=== PATIENT | female | born 1970 | race African-American/Black ===

== ENCOUNTER → 2016-04-29 | Outpatient (CLI) | payer OTHER ==
[~2016-04-29] VITALS: Ht 167.6 cm; Wt 90.7 kg
[2016-04-29 13:47] VITALS: BP 141/75
--- NOTE | 2016-04-29 15:46 | RAD ---
Indication mass left breast. Anticipated biopsy. Note is made of recent ultrasound examination of the left breast, 04/20/2016. A reasonably well-defined mass was seen in the upper outer left breast on that exam for which biopsy had been recommended. Targeted ultrasound of the left breast was performed and the known mass at the 2:00 position of the left breast, 9 cm from the nipple, was reproduced. Senior Software Quality [employer]st ultrasound images were saved. Image guided biopsy was discussed with the patient. The risks of infection and bleeding were outlined. The small possibility of pneumothorax was also discussed. The patient understood the risks associated with the procedure and wished to proceed. The skin was prepped and draped in the routine fashion. Local anesthesia was accomplished with 1% lidocaine. A 14-gauge coaxial biopsy system was utilized. Under ultrasound guidance 5 core samples were obtained. At the completion of the procedure a clip was placed at the biopsy site. Post biopsy clip deployment images of the left breast were obtained. S-shaped biopsy clip is noted in the upper outer aspect of the breast. The patient tolerated the procedure unremarkably. The biopsy site was dressed in routine fashion and the patient discharged with appropriate instructions. The biopsy samples were placed in formaldehyde and transferred to the pathology department. IMPRESSION: Successful ultrasound-guided biopsy mass upper outer left breast
== END | disposition home or self-care (01) ==
LOC: EDUNIT# 13:30 → US 15:32
PROVIDERS: ATTEND Nurse Practitioner
DX: N63 Unspecified lump in breast (principal)
CPT/HCPCS: 76942; G0206; 77065

== ENCOUNTER → 2019-05-03 | Outpatient (CLI) | payer OTHER ==
--- NOTE | 2019-05-03 11:49 | RAD ---
History: Routine screening. Technique: Bilateral digital mammographic routine views were obtained with 2-D and 3-D technique including use of CAD - computer aided detection. Comparison: 01/18/2017, 01/24/2018. Findings: Breast Tissue Density B :The breast tissue is composed of mixed fatty and fibroglandular tissue. There are no suspicious masses, microcalcifications or areas of architectural distortion. Impression: Negative mammogram. BI-RADS Category 1: Negative. Normal interval followup. A mammogram does not have 100% sensitivity and therefore a negative imaging study should not delay further work up of a suspicious abnormality. The patient will receive a letter with the results in the mail. Patient information is entered into the reminder system with a target due date for the next screening mammogram. The patient will receive a reminder. "Our facility is accredited by the [employer] Mammography Program." BI-RADS 1 -- negative findings (within normal)
== END ==
LOC: MAMMO 08:19
PROVIDERS: ATTEND Nurse Practitioner Family
DX: Z12.31 Encounter for screening mammogram for malignant neoplasm of breast (principal)
CPT/HCPCS: 77063; 77067